=== PATIENT | female | born 1980 | race African-American/Black ===

== ENCOUNTER 2017-03-08 22:42 | Emergency (ER) | payer MEDICARE, OTHER ==
[~2017-03-08] VITALS: Ht 157.5 cm; Wt 90.2 kg
[2017-03-08 22:49] VITALS: BP 144/90
[2017-03-08 23:16] LABS: BASOPHILS # (AUTO) 0.06 x10^3/uL (0-0.1); BASOPHILS % (AUTO) 1 % (0-1); EOSINOPHILS # (AUTO) 0.11 x10^3/uL (0-0.4); EOSINOPHILS % (AUTO) 1 % (1-7); LYMPHOCYTES % (AUTO) 28 % (22-44); MD NO; MEAN CORPUSCULAR HEMOGLOBIN 21.8 pg (27.0-34.8); MEAN CORPUSCULAR HGB CONC 31.9 g/dL (32.4-35.8); MEAN CORPUSCULAR VOLUME 68.5 fL (80-100); MEAN PLATELET VOLUME 8.9 fL (7.4-10.4); MONOCYTES # (AUTO) 0.64 x10^3/uL (0.2-0.8); MONOCYTES % (AUTO) 7 % (2-9); NEUTROPHILS % (AUTO) 63 % (42-75); PLATELET COUNT 198 x10^3/uL (130-400); RED BLOOD COUNT 5.09 x10^6/uL (3.82-5.3); RED CELL DISTRIBUTION WIDTH 15.4 % (9.6-15.2)
[2017-03-08 23:29] LABS: ALANINE AMINOTRANSFERASE 15 U/L (12-78); ALBUMIN 3.8 g/dL (3.4-5.0); ANION GAP 5 mmol/L (5-15); CALCIUM 8.4 mg/dL (8.5-10.1); CHLORIDE 105 mmol/L (98-107); CREATININE 0.78 mg/dL (0.55-1.02)
[2017-03-08 23:34] LABS: ALKALINE PHOSPHATASE 53 U/L (45-117); BILIRUBIN,TOTAL 0.5 mg/dL (0.2-1.0); TOTAL PROTEIN 7.3 g/dL (6.4-8.2)
[2017-03-09] MEDS ORDERED: PROP20TA PO (00:56)
[2017-03-09] MEDS ORDERED: IBUPROFEN (00:56)
[2017-03-09] MEDS ORDERED: LAMO200T4 PO (00:56)
[2017-03-09] MEDS ORDERED: DIAZ10TA PO (00:56)
[2017-03-09] MEDS ORDERED: HYDR1TAB12 PO (00:56)
[2017-03-09 01:14] LABS: MICROSCOPIC INDICATED
[2017-03-09 01:31] LABS: CULTURE INDICATED? NO
[2017-03-09] MEDS ORDERED: HYDROcodone/APAP 5/325 TABLET PO ONE (02:00)
[2017-03-09] MEDS ORDERED: HYDROcodone/APAP 5/325 TABLET ONE (02:06)
== END 2017-03-09 02:40 | disposition home or self-care (01) ==
LOC: ED 03-09 01:32
DX: R10.30 Lower abdominal pain, unspecified (principal); I10 Essential (primary) hypertension
CPT/HCPCS: 36415; 80053; 81001; 83690; 84703; 85025; 99284